=== PATIENT | male | born 1985 | race Caucasian/White ===

== ENCOUNTER 2017-08-12 14:19 | Observation (INO) | payer OTHER ==
[~2017-08-12] VITALS: Ht 177.8 cm; Wt 86.4 kg
[2017-08-12 14:22] VITALS: Ht 177.8 cm; Wt 86.4 kg
[2017-08-12] MEDS ORDERED: SODIUM CHLORIDE 0.9% 1000ML 1,000 ML IV STA (14:43)
[2017-08-12] MEDS ORDERED: OPTIRAY 320 IV PRN (15:00)
[2017-08-12 15:01] LABS: BASO % 0.1 %; BASO ABS # 0.01 K/uL (0-0.2); HEMOGLOBIN 16.6 g/dL (14.0-18.0); IG# 0.07 K/uL (0.00-0.02); LYMPH % 2.3 %; LYMPH ABS # 0.46 K/uL (1.2-3.4); MEAN CELL VOLUME 86.4 fL (80-100); MEAN CORPUSCULAR HEMOGLOBIN 32.6 pg (25-34); MEAN CORPUSCULAR HGB CONC 37.7 g/dl (32-36); MEAN PLATELET VOLUME 8.5 fL (7.4-10.4); MONO % 3.7 %; MONO ABS # 0.74 K/uL (0.11-0.59); NEUT % 93.5 %; NEUT ABS # 18.47 K/uL (1.4-6.5); PLATELET COUNT 175 K/uL (130-400); RED CELL DISTRIBUTION WIDTH CV 11.9 % (11.5-14.5); RED CELL DISTRIBUTION WIDTH SD 37.5 fL (36.4-46.3); WHITE BLOOD COUNT 19.75 K/uL (4.8-10.8)
[2017-08-12 15:07] LABS: ALBUMIN 4.8 gm/dl (3.4-5.0); CALCIUM 8.8 mg/dl (8.5-10.1); CREATININE 1.06 mg/dl (0.60-1.40); POTASSIUM 3.7 mmol/L (3.5-5.1)
[2017-08-12 15:10] LABS: TOTAL PROTEIN 8.2 gm/dl (6.4-8.2)
--- NOTE | 2017-08-12 17:11 | DIAGNOSTIC IMAGING REPORT ---
ABDOMEN AND PELVIS CT WITH IV CONTRAST CT DOSE: 693.57 mGycm HISTORY: Refer by pcp for R sided abd pain to evaluate for appendicitis TECHNIQUE: Multiaxial CT images of the abdomen and pelvis were performed following the use of intravenous contrast. A dose lowering technique was utilized adhering to the principles of ALARA. COMPARISON STUDY: Abdomen and pelvis CT 08/12/2014. FINDINGS: Mild dependent changes seen at the lung bases. No pneumoperitoneum. No pneumatosis. No fractures within the visualized osseous structures. The liver, gallbladder, pancreas, spleen, adrenal glands, and kidneys are unremarkable. No hydronephrosis. No retroperitoneal lymphadenopathy. Mild bladder wall thickening. This is likely due to underdistention. No evidence for bowel obstruction. The appendix is identified on images 255 through 290. This appears to demonstrate a slightly thickened and enhancing wall. There is also suggestion of minimal surrounding inflammatory change. No perforation or abscess at this time. The appendix is distended up to 1 cm. Therefore, these findings are concerning for an early acute appendicitis. IMPRESSION: The appendix appears to demonstrate a slightly thickened and enhancing wall. There is also suggestion of minimal surrounding inflammatory change. No perforation or abscess at this time. The appendix is distended up to 1 cm. Therefore, these findings are concerning for an early acute appendicitis. Surgical consultation is advised. Electronically signed by: Wicho Dacosta M.D. 08/12/2017 5:09 PM Dictated Date/Time: 08/12/2017 4:59 PM
[2017-08-12] MEDS ORDERED: CEFOXITIN SOD 2 GM VIAL IV STA (17:26)
[2017-08-12] MEDS ORDERED: EpINEphrine INJ 1MG/ML AMP 1 MG/ML AMP ONE (17:36)
[2017-08-12] MEDS ORDERED: BUPIVACAINE 0.5 % 5 MG/1 ML MPF 30ML VIAL ONE (17:36)
[2017-08-12] MEDS ORDERED: GLYCOPYRROLATE INJ 0.2 MG/ML VIAL ONE (17:41)
[2017-08-12] MEDS ORDERED: NEOSTIGMINE METHYLSULFATE 5 MG/5 ML SYR ONE (17:41)
[2017-08-12] MEDS ORDERED: PROPOFOL IV EMULSION 10 MG/ML 20 ML VIAL ONE (17:41)
[2017-08-12] MEDS ORDERED: DEXAMETHASONE SOD INJ 4 MG/ML VIAL ONE (17:41)
[2017-08-12] MEDS ORDERED: LIDOCAINE HCL 2% 2 ML VIAL (20MG/ML) ONE (17:41)
[2017-08-12] MEDS ORDERED: ONDANSETRON INJ 2 MG/ML 2 ML VIAL ONE (17:41)
[2017-08-12] MEDS ORDERED: MIDAZOLAM HCL 1 MG/ML 2ML VIAL ONE (17:42)
[2017-08-12] MEDS ORDERED: FENTANYL CITRATE INJ 50 MCG/1 ML 2 ML VIAL ONE (17:42)
[2017-08-12] MEDS ORDERED: SUCCINYLCHOLINE CHLORIDE 20 MG/ML 10 ML VIAL IV ONE (17:43)
[2017-08-12] MEDS ORDERED: ROCURONIUM BROMIDE 10 MG/ML 5 ML VIAL ONE (17:43)
[2017-08-12] MEDS ORDERED: NALOXONE HCL 0.4 MG/1 ML VIAL/CARP IV PRN (18:00)
[2017-08-12] MEDS ORDERED: EpHEDrine SULFATE INJ 50 MG/ML AMP IV PRN (18:00)
[2017-08-12] MEDS ORDERED: FLUMAZENIL 0.1 MG/1 ML 10 ML VIAL IV PRN (18:00)
[2017-08-12] MEDS ORDERED: FENTANYL CITRATE INJ 50 MCG/1 ML 2 ML VIAL IV PRN (18:00)
[2017-08-12] MEDS ORDERED: MEPERIDINE HCL 25 MG/ML CARP IV PRN (18:00)
[2017-08-12] MEDS ORDERED: LABETALOL HCL IV 5 MG/ML 20ML IV PRN (18:00)
[2017-08-12] MEDS ORDERED: ATROPINE SULFATE 0.1 MG/ML 5ML SYR IV PRN (18:00)
[2017-08-12] MEDS ORDERED: PHENYLEPHRINE 100MCG/ML 5ML SYR IV PRN (18:00)
[2017-08-12] MEDS ORDERED: ONDANSETRON INJ 2 MG/ML 2 ML VIAL IV PRN ×2 (18:00→19:15)
[2017-08-12] MEDS ORDERED: HYDROmorphone INJ 2 MG/ML SYR/VIAL IV PRN (18:00)
--- NOTE | 2017-08-12 18:02 | History and Physical ---
History & Physical Date August 12, 2017. History of Present Illness The patient is a 32 year old male with complaints of nathalia umbilical pain beginning this am. has progressed to RLQ. CT + acute appendicitis Past Medical/Surgical History Medical Problems: (1) Acute Pharyngitis Additional History Hepatic Disease: No Endocrine Disorder: No Kidney Disease: No Hypertension: No Heart Disease: No Bleeding Tendencies: No Infectious Diseases: No Allergies Coded Allergies: No Known Allergies (Unverified , 08/12/17) Home Medications No Active Prescriptions or Reported Meds Physical Examination Skin: warm/dry, no rash Eyes: normal inspection, sclerae normal ENT: normal ENT inspection Neck: supple, trachea midline Respiratory/Chest: no respiratory distress Abdomen / GI: + pertinent finding (+RLQ ttp. +rovsing sign) Extremities: normal inspection Neurologic/Psych: alert, oriented x 3 Diagnosis acute appendicitis Plan of Treatment lap appy noreen discussed risks /options ( bleeding/dvt/pe/staple line leak, injury to other organs/infection etc...) questions answered will proceed with lap appy
--- NOTE | 2017-08-12 18:05 | EMERGENCY ROOM VISIT NOTE ---
ED Visit Note First contact with patient: 14:25 Chief Complaint: Abdominal pain and vomiting. History of Present Illness: Mr. Guidry is a 32 year-old white male who ambulates into the ED complaining of right sided abdominal pain abdominal pain. Historically patient reports previous significant gastrointestinal disorders or surgeries. Patient reports upon waking this morning approximately 7-8 hours ago he developed periumbilical pain. Since that time his pain has been constant and has radiated into the right side of the abdomen. He was seen at his PCPs office and referred to the ED to rule out appendicitis. Currently patient places his discomfort just superior and lateral to McBurney's point. He describes his pain as a achy sensation. He rates his discomfort 8/ 10 when ambulating and moving at the waist and at rest 4/10. His pain is nonradiating. He has not taken any medications for his pain prior to arrival at the hospital. He reports associated with his pain he was nauseated and vomited but has not done so in the last couple hours. He also reports he has been having some chills but no diaphoresis and has not been able to check his temperature. His pain has also been associated with a decreased appetite. He reports the last time he ate was 8:00 last night prior to the onset of painful symptoms. Patient denies skin eruptions, skin color changes, upper respiratory tract symptoms, shortness of breath, chest pain, diarrhea, constipation, rectal bleeding, black/tarry stools, urinary symptoms, hematuria, back/flank pain. Review of Systems: As noted above in history of present illness. All body systems were reviewed and found to be negative as noted above. Past Medical History: As previously noted and unspecified disc herniation of the spine. Current Medications: Patient denies. Allergies to Medications: Patient denies. Social History: Patient is currently employed; he feels safe in his home environment; he denies tobacco use and admits to social alcohol use. Physical Examination: Vital Signs: Date Time Temp Pulse Resp B/P (MAP) Pulse Ox O2 Delivery O2 Flow Rate FiO2 08/12/17 17:02 90 16 130/79 97 Room Air 08/12/17 15:13 79 08/12/17 14:22 36.7 88 18 113/71 99 Room Air GENERAL: 32-year-old male in mild distress due to pain, nontoxic-appearing, afebrile and hemodynamically stable. NEUROLOGICAL: Awake, alert and oriented to person, place and time. Answering questions appropriately and following commands. Normal gait. Good hand eye coordination. SKIN: Warm, dry and pink. No soft tissue eruptions or trauma noted. HEENT: Atraumatic and normocephalic. PERRLA. Sclera white and conjunctiva pink. Oral cavity moist and pink. Pharynx is nonerythematous or edematous. Speech normal. No lymphadenopathy. Trachea midline. No jugular venous distention. BACK: No tenderness over the bony spine. No CVA tenderness. THORAX: Lungs sounds are clear to auscultation and equal bilaterally with symmetrical chest wall. No wheezing, rales or rhonchi. No crepitus, tenderness , subcutaneous air or deformities noted. HEART: Regular rate and rhythm. No gallops, rubs or murmurs are appreciated. ABDOMEN: Flat and soft with mild to moderate tenderness in the right lower quadrant superior and lateral to McBurney's point. Positive bowel sounds in all quadrants. No guarding, rigidity or organomegaly. EXTREMITIES: Moves all extremities well on command and with purpose. All distal neurovascular statuses are intact and equal bilaterally. ED Course: Patient is assessed as noted above. Laboratory Testing: Test 08/12/17 14:40 08/12/17 14:55 Range/Units White Blood Count 19.75 4.8-10.8 K/uL Red Blood Count 5.09 4.7-6.1 M/uL Hemoglobin 16.6 14.0-18.0 g/dL Hematocrit 44.0 42-52 % Mean Corpuscular Volume 86.4 80-100 fL Mean Corpuscular Hemoglobin 32.6 25-34 pg Mean Corpuscular Hemoglobin Concent 37.7 32-36 g/dl Platelet Count 175 130-400 K/uL Mean Platelet Volume 8.5 7.4-10.4 fL Neutrophils (%) (Auto) 93.5 % Lymphocytes (%) (Auto) 2.3 % Monocytes (%) (Auto) 3.7 % Eosinophils (%) (Auto) 0.0 % Basophils (%) (Auto) 0.1 % Neutrophils # (Auto) 18.47 1.4-6.5 K/uL Lymphocytes # (Auto) 0.46 1.2-3.4 K/uL Monocytes # (Auto) 0.74 0.11-0.59 K/uL Eosinophils # (Auto) 0.00 0-0.5 K/uL Basophils # (Auto) 0.01 0-0.2 K/uL RDW Standard Deviation 37.5 36.4-46.3 fL RDW Coefficient of Variation 11.9 11.5-14.5 % Immature Granulocyte % (Auto) 0.4 % Immature Granulocyte # (Auto) 0.07 0.00-0.02 K/uL Sodium Level 138 136-145 mmol/L Potassium Level 3.7 3.5-5.1 mmol/L Chloride Level 105 98-107 mmol/L Carbon Dioxide Level 27 21-32 mmol/L Anion Gap 6.0 3-11 mmol/L Blood Urea Nitrogen 14 7-18 mg/dl Creatinine 1.06 0.60-1.40 mg/dl Est Creatinine Clear Calc Drug Dose 104.3 ml/min Estimated GFR () 107.9 Estimated GFR (Non- 93.1 BUN/Creatinine Ratio 13.2 10-20 Random Glucose 119 70-99 mg/dl Calcium Level 8.8 8.5-10.1 mg/dl Total Bilirubin 0.8 0.2-1 mg/dl Direct Bilirubin 0.2 0-0.2 mg/dl Aspartate Amino Transf (AST/SGOT) 10 15-37 U/L Alanine Aminotransferase (ALT/SGPT) 28 12-78 U/L Alkaline Phosphatase 53 45-117 U/L Total Protein 8.2 6.4-8.2 gm/dl Albumin 4.8 3.4-5.0 gm/dl Lipase 106 73-393 U/L Urine Color YELLOW Urine Appearance CLEAR CLEAR Urine pH 5.0 4.5-7.5 Urine Specific [place] 1.027 1.000-1.030 Urine Protein NEG NEG Urine Glucose (UA) NEG NEG Urine Ketones TRACE NEG Urine Occult Blood NEG NEG Urine Nitrite NEG NEG Urine Bilirubin NEG NEG Urine Urobilinogen NEG NEG Urine Leukocyte Esterase NEG NEG IV Contrast Abdominal/Pelvic CT: Was reviewed by myself and read by the radiologist showing appendix slightly thickened with enhancing bernardo and minimal surrounding inflammatory changes consistent with an acute appendicitis. No perforation or abscess was seen. Patient was hydrated with normal saline; patient was offered pain and antinausea medication and refused multiple times. Patient's case was reviewed with Dr. Poe; we agreed on diagnostic approach , treatment, disposition and plan. Patient's case was consulted with Dr. Ng, general surgery; he requested that I order 2 g of Mefoxin IV for antibiotic coverage for the patient; I complied. Patient and mother were educated about today's findings. Clinical Impression: Acute appendicitis. Decision-Making: Initially my differential diagnosis I considered acute appendicitis, constipation, bowel obstruction, colitis, gastroenteritis, kidney stone, mesenteric adenitis and other causes. Disposition and Plan: Patient will be going to surgery for an appendectomy by Dr. Ng; please see his notes and orders for final disposition and plan.
[2017-08-12] MEDS ORDERED: KETOROLAC TROMETHAMINE 30 MG/ML VIAL ONE (18:56)
--- NOTE | 2017-08-12 19:03 | [facility] Operative Report ---
Operative Report Operative Date August 12, 2017. Pre-Operative Diagnosis Acute Appendicitis Post-Operative Diagnosis Acute Appendicitis Procedure(s) Performed Laparoscopic appendectomy Surgeon Dr. Ng Estimated Blood Loss 5cc Findings acute appendicitis Specimens A. Appendix Anesthesia Type General Complication(s) none Description of Procedure After informed consent was obtained the patient was taken to the operating room and placed in supine position. After successful intubation a Penn catheter was placed and the left arm was tucked. A Penn catheter was inserted sterilely. I began by making a periumbilical incision with an 11 blade scalpel and carried this down through the soft tissue using electrocautery. The anterior rectus fascia was opened using electrocautery and 2 #0 Vicryl stay sutures were placed. The peritoneum was elevated using hemostats and incised under direct vision using a Metzenbaum scissor. A finger sweep was performed. A 12 mm Rowell trocar was placed and the abdomen was insufflated to 18 mmHg. A laparoscope was inserted and the abdomen was examined in 360. A suprapubic 5 mm port and a left lower quadrant 12 mm port were placed under direct vision. The patient was air planed to the left as well as placed in a slight Trendelenburg position. We began by looking in the right lower quadrant. We were able to readily identify the appendix and it was grossly inflamed. It had not perforated. I was able to use primarily blunt dissection to pull the appendix away from the right lower quadrant sidewall. I was then able to create a small window in the mesoappendix. I used a TAWANDA brown cartridge stapler to transect the appendix at its base with the cecum. I used an additional firing of the brown cartridge to take down the mesentery of the appendix. It was then placed into an Endo Catch bag and removed from the camera port site. We thoroughly irrigated the right lower quadrant as well as the pelvis. There was adequate hemostasis. I ran the small bowel backwards from the terminal ileum for about 6 feet all of which was normal. All the peritoneal surfaces were normal. Small/ large bowel, liver, stomach etc. all appeared grossly normal. We did a final irrigation and then removed all the trochars and desufflated the abdomen. The fascia of the camera port as well as the left lower quadrant were closed using 0 Vicryl in [id number] fashion. Wounds were all irrigated and closed using 4-0 Monocryl. Marcaine was injected around them for postoperative analgesia and skin glue used as a dressing. The patient was awakened extubated and transferred to recovery in stable condition. I attest to the content of the Intraoperative Record and any orders documented therein. Any exceptions are noted below. I attest to the content of the Intraoperative Record and any orders documented therein. Any exceptions are noted below.
[2017-08-12] MEDS ORDERED: OXYCODONE/ACETAMINOPHEN 5-325 TAB PO PRN (19:15)
[2017-08-12] MEDS ORDERED: MoRPHine SULFATE 4 MG/ML 1 ML CARP\\VIAL IV PRN (19:15)
[2017-08-12] MEDS ORDERED: MoRPHine SULFATE 10 MG/ML CARP/VIAL IV PRN (19:15)
[2017-08-12] MEDS ORDERED: IBUPROFEN 600 MG TAB PO PRN (19:15)
[2017-08-12] MEDS ORDERED: ACETAMINOPHEN IV 100 ML IV PRN (19:15)
--- NOTE | 2017-08-12 19:46 | Anesthesiology Progress Note ---
Anesthesia Post Op Note Date & Time August 12, 2017 at 19:46 Vital Signs Pain Intensity: 2 Vital Signs Past 12 Hours Date Time Temp Pulse Resp B/P (MAP) Pulse Ox O2 Delivery O2 Flow Rate FiO2 08/12/17 19:35 36.5 83 26 131/61 96 Nasal Cannula 2 08/12/17 19:25 88 26 124/61 96 Nasal Cannula 4 08/12/17 19:15 86 25 128/71 97 Nasal Cannula 4 08/12/17 19:09 36.0 105 16 120/76 95 Nasal Cannula 4 08/12/17 17:02 90 16 130/79 97 Room Air 08/12/17 15:13 79 08/12/17 14:22 36.7 88 18 113/71 99 Room Air Notes Mental Status: alert / awake / arousable, participated in evaluation Pt Amnestic to Procedure: Yes Nausea / Vomiting: adequately controlled Pain: adequately controlled Airway Patency, RR, SpO2: stable & adequate BP & HR: stable & adequate Hydration State: stable & adequate Anesthetic Complications: no major complications apparent
[2017-08-12 20:00] VITALS: BP 133/71; TEMP 37; O2SAT 96
[2017-08-12] MEDS ORDERED: IV FLUIDS COMPLETED PRN (20:00)
[2017-08-12 20:34] VITALS: BP 125/70; PULSE 100; TEMP 37.1; O2SAT 96
[2017-08-12 21:00] VITALS: BP 143/79; PULSE 107; TEMP 37.3; O2SAT 97
[2017-08-12] MEDS: LACTATED RINGER'S 1000ML 1,000 ML IV SCH (21:44)
[2017-08-12 22:01] VITALS: BP 125/77; PULSE 89; TEMP 36.9; O2SAT 93
[2017-08-12 23:05] VITALS: BP 115/71; PULSE 98; TEMP 36.7; O2SAT 93
[2017-08-13] MEDS ORDERED: COUGH DROP (SUGAR FREE) LOZ 24 LOZ/1 BOX LOZ ONE (00:11)
[2017-08-13] MEDS ORDERED: COUGH DROP (SUGAR FREE) LOZ 24 LOZ/1 BOX LOZ PRN (00:30)
[2017-08-13] MEDS ORDERED: MoRPHine SULFATE 2 MG/ML CARP IV PRN (01:00)
[2017-08-13] MEDS ORDERED: MoRPHine SULFATE 4 MG/ML 1 ML CARP\\VIAL IV PRN (01:00)
[2017-08-13 03:29] VITALS: BP 111/73; PULSE 85; TEMP 36.6; O2SAT 95
[2017-08-13] MEDS: OXYCODONE/ACETAMINOPHEN 5-325 TAB PO PRN ×3 (04:18→13:40)
[2017-08-13] MEDS: LACTATED RINGER'S 1000ML 1,000 ML IV SCH (04:19)
[2017-08-13 06:52] LABS: HEMATOCRIT 39.1 % (42-52); HEMOGLOBIN 14.8 g/dL (14.0-18.0); IG# 0.02 K/uL (0.00-0.02); LYMPH % 4.5 %; LYMPH ABS # 0.58 K/uL (1.2-3.4); MEAN CELL VOLUME 87.5 fL (80-100); MEAN CORPUSCULAR HEMOGLOBIN 33.1 pg (25-34); MEAN CORPUSCULAR HGB CONC 37.9 g/dl (32-36); MEAN PLATELET VOLUME 8.5 fL (7.4-10.4); MONO % 6.2 %; NEUT % 89.1 %; NEUT ABS # 11.59 K/uL (1.4-6.5); PLATELET COUNT 152 K/uL (130-400); RED CELL DISTRIBUTION WIDTH CV 12.3 % (11.5-14.5); RED CELL DISTRIBUTION WIDTH SD 38.8 fL (36.4-46.3); WHITE BLOOD COUNT 12.99 K/uL (4.8-10.8)
[2017-08-13 07:16] LABS: CALCIUM 8.3 mg/dl (8.5-10.1); CREATININE 0.91 mg/dl (0.60-1.40); POTASSIUM 4.5 mmol/L (3.5-5.1)
[2017-08-13 07:27] VITALS: BP 123/77; PULSE 74; TEMP 36.8; O2SAT 97
[2017-08-13] MEDS ORDERED: OXYC-57 PO (07:27)
--- NOTE | 2017-08-13 07:32 | Discharge Instructions ---
Discharge Instructions Date of Service August 13, 2017. Admission Reason for Admission: Appendicitis Discharge Discharge Diagnosis / Problem: Appendicitis Discharge Goals Goal(s): Decrease discomfort, Improve function Activity Recommendations Activity Limitations: as noted below Lifting Limitations: no more than 10 pounds Exercise/Sports Limitations: until after follow-up appointment May Resume Sexual Activity: after follow-up appointment Shower/Bathe: no limitations Driving or Machine Use: resume 1 day after discharge . Instructions / Follow-Up Instructions / Follow-Up You have surgical glue, Dermabond, over your incisions. You can shower, but please do not soak or scrub the incisions. Please follow-up with Dr. Ng in the General Surgery Clinic located at [address] [place] [address] MATIAS Dillon in 1-2 weeks. Please call the office at to make this appointment. Please call the General Surgery Clinic with any questions or concerns at . Current Hospital Diet Patient's current hospital diet: Full Liquid Diet Discharge Diet Recommended Diet: Regular Diet Procedures Procedures Performed: Laparoscopic appendectomy Pending Studies Studies pending at discharge: yes List of pending studies: Pathology report. Medical Emergencies . Who to Call and When: Medical Emergencies: If at any time you feel your situation is an emergency, please call 911 immediately. . Non-Emergent Contact Non-Emergency issues call your: Primary Care Provider, Surgeon Call Non-Emergent contact if: temperature is above 101.5, your pain is not controlled, wound has increased drainage, wound has increased redness . "Provider Documentation" section prepared by Page Balderrama. .
[2017-08-13] MEDS: CEFOXITIN IV 2,000 MG in DEXTROSE 5% 50ML 50 ML IV SCH ×3 (08:23)
--- NOTE | 2017-08-13 10:12 | Surgery Progress Note ---
Surgery Progress Note Date of Service August 13, 2017. Subjective Post OP Day: 1 some expected abdominal soreness. miladis clears. Objective Vital Signs: Date Time Temp Pulse Resp B/P (MAP) Pulse Ox O2 Delivery O2 Flow Rate FiO2 08/13/17 07:27 36.8 74 16 123/77 (92) 97 Room Air 08/13/17 03:29 36.6 85 14 111/73 (86) 95 Room Air 08/13/17 00:00 Room Air 08/12/17 23:05 36.7 98 16 115/71 (86) 93 Room Air 08/12/17 22:01 36.9 89 16 125/77 (93) 93 Room Air 08/12/17 21:00 37.3 107 16 143/79 (100) 97 Room Air 2.0 08/12/17 20:34 37.1 100 16 125/70 (88) 96 Nasal Cannula 2.0 08/12/17 20:00 37.0 18 133/71 (91) 96 Nasal Cannula 2.0 08/12/17 20:00 96 Nasal Cannula 2.0 08/12/17 20:00 96 Nasal Cannula 2.0 08/12/17 19:45 94 20 123/67 95 Nasal Cannula 2 08/12/17 19:35 36.5 83 26 131/61 96 Nasal Cannula 2 08/12/17 19:25 88 26 124/61 96 Nasal Cannula 4 08/12/17 19:15 86 25 128/71 97 Nasal Cannula 4 08/12/17 19:09 36.0 105 16 120/76 95 Nasal Cannula 4 08/12/17 17:02 90 16 130/79 97 Room Air 08/12/17 15:13 79 08/12/17 14:22 36.7 88 18 113/71 99 Room Air General Appearance: no apparent distress Respiratory/Chest: no respiratory distress, no accessory muscle use Abdomen: soft Incision(s): clean, dry, intact Laboratory Results: Results Past 24 Hours Test 08/12/17 14:40 08/12/17 14:55 08/13/17 06:22 Range/Units White Blood Count 19.75 12.99 4.8-10.8 K/uL Red Blood Count 5.09 4.47 4.7-6.1 M/uL Hemoglobin 16.6 14.8 14.0-18.0 g/dL Hematocrit 44.0 39.1 42-52 % Mean Corpuscular Volume 86.4 87.5 80-100 fL Mean Corpuscular Hemoglobin 32.6 33.1 25-34 pg Mean Corpuscular Hemoglobin Concent 37.7 37.9 32-36 g/dl Platelet Count 175 152 130-400 K/uL Mean Platelet Volume 8.5 8.5 7.4-10.4 fL Neutrophils (%) (Auto) 93.5 89.1 % Lymphocytes (%) (Auto) 2.3 4.5 % Monocytes (%) (Auto) 3.7 6.2 % Eosinophils (%) (Auto) 0.0 0.0 % Basophils (%) (Auto) 0.1 0.0 % Neutrophils # (Auto) 18.47 11.59 1.4-6.5 K/uL Lymphocytes # (Auto) 0.46 0.58 1.2-3.4 K/uL Monocytes # (Auto) 0.74 0.80 0.11-0.59 K/uL Eosinophils # (Auto) 0.00 0.00 0-0.5 K/uL Basophils # (Auto) 0.01 0.00 0-0.2 K/uL RDW Standard Deviation 37.5 38.8 36.4-46.3 fL RDW Coefficient of Variation 11.9 12.3 11.5-14.5 % Immature Granulocyte % (Auto) 0.4 0.2 % Immature Granulocyte # (Auto) 0.07 0.02 0.00-0.02 K/uL Sodium Level 138 138 136-145 mmol/L Potassium Level 3.7 4.5 3.5-5.1 mmol/L Chloride Level 105 107 98-107 mmol/L Carbon Dioxide Level 27 26 21-32 mmol/L Anion Gap 6.0 5.0 3-11 mmol/L Blood Urea Nitrogen 14 9 7-18 mg/dl Creatinine 1.06 0.91 0.60-1.40 mg/dl Est Creatinine Clear Calc Drug Dose 104.3 121.4 ml/min Estimated GFR () 107.9 129.7 Estimated GFR (Non- 93.1 111.9 BUN/Creatinine Ratio 13.2 9.6 10-20 Random Glucose 119 134 70-99 mg/dl Calcium Level 8.8 8.3 8.5-10.1 mg/dl Total Bilirubin 0.8 0.2-1 mg/dl Direct Bilirubin 0.2 0-0.2 mg/dl Aspartate Amino Transf (AST/SGOT) 10 15-37 U/L Alanine Aminotransferase (ALT/SGPT) 28 12-78 U/L Alkaline Phosphatase 53 45-117 U/L Total Protein 8.2 6.4-8.2 gm/dl Albumin 4.8 3.4-5.0 gm/dl Lipase 106 73-393 U/L Urine Color YELLOW Urine Appearance CLEAR CLEAR Urine pH 5.0 4.5-7.5 Urine Specific [place] 1.027 1.000-1.030 Urine Protein NEG NEG Urine Glucose (UA) NEG NEG Urine Ketones TRACE NEG Urine Occult Blood NEG NEG Urine Nitrite NEG NEG Urine Bilirubin NEG NEG Urine Urobilinogen NEG NEG Urine Leukocyte Esterase NEG NEG Assessment & Plan POD 1 lap appy doing as expected ambulate this am try food for lunch. if tolerates can d/c this afternoon. instructions given
[2017-08-13 12:12] VITALS: BP 120/79; PULSE 75; TEMP 36.9; O2SAT 97
[2017-08-13 12:35] VITALS: BP 120/79; PULSE 75; TEMP 36.9; O2SAT 97
--- NOTE | 2017-08-18 10:01 | Discharge Summary ---
Discharge Summary Date of Service August 18, 2017. Admission Date/Reason August 12, 2017 at 19:06 Appendicitis. Discharge Date/Disposition August 13, 2017 Home Diagnosis Principal Diagnosis: Acute Appendicitis Procedure(s) Performed Laparoscopic Appendectomy Admission Physical Exam As per Admitting History & Physical. Hospital Course Mr. Guidry is a 32-year-old male who presented to [facility] ED with complaints of nathalia umbilical pain that began early in the morning. The pain progressed to RLQ. CT scan illustrates acute appendicitis. Dr. Ng reviewed Laparoscopic Appendectomy procedure and risks of procedure with patient. Patient voiced understanding and agreement with treatment plan. Patient was taken to OR for Laparoscopic Appendectomy, Possible Open Appendectomy. Pre-Op Dx- Acute Appendicitis Post-Op Diagnosis- Acute Appendicitis Post-Operatively, patient was admitted for observation, pain control. Patient did well and was deemed eligible for discharge on POD #1. Return precautions reviewed with patient. Both verbal and written discharge instructions provided. Patient to follow-up with Dr. Ng in General Surgery Clinic 1-2 weeks after discharge. Discharge Instructions Please refer to the electronic Patient Visit Report (Discharge Instructions) for additional information.
== END 2017-08-13 13:51 | disposition home or self-care (01) ==
LOC: C.EDB 14:21 → C.MSW 19:06 → ENRESERV 19:46
PROVIDERS: ADMIT Surgery; ATTEND Surgery
DX: K35.80 Unspecified acute appendicitis (principal)